=== PATIENT | female | born 2000 | race Caucasian/White ===

== ENCOUNTER 2021-03-02 19:21 | Emergency (ER) | payer MEDICAID, SELFPAY ==
[2021-03-02 20:42] VITALS: BP 115/76; PULSE 101; RESP 18; TEMP 36.8; O2SAT 99; BMI 18.8
--- NOTE | 2021-03-02 20:47 | HMH.EDUTC ---
[facility] Disposition Clinical Impression: Exposure to COVID-19 virus Disposition: Home, Self-Care Condition on Discharge: Good Instructions: Preventing the Spread of Coronavirus Discharge Instructions Additional Instructions: Drink plenty of fluids. Take tylenol for pain or fever. Return if you begin to have difficulty breathing. Follow up with your regular doctor. GO TO THE ER FOR ANY WORSENING SYMPTOMS Quarantine until you know the results of your covid-19 test. If it is positive, the health department should call you and give you further instructions about your length of Quarantine and other things. Notify your school or workplace of your results and follow their instructions regarding return to work/school. Referrals: Gael Almendarez [Primary Care Provider] - Time of Disposition: 20:59 Medical Decision Making - Medical Records Medical records reviewed: No: I reviewed the patient's medical records. - Tejinder Inquiry Pt receiving controlled substance: No Vital Signs: 03/02/21 20:42 03/02/21 21:07 Temperature 98.3 F 98.1 F Temperature Source Oral Pulse Rate 99 H Pulse Rate [Left] 101 H Respiratory Rate 18 16 Blood Pressure 109/66 L Blood Pressure [Right Arm] 115/76 Blood Pressure Mean [Right Arm] 89 02 Sat by Pulse Oximetry 99 Orders (Tests/Meds): ORDERS Category Date Time Status Covid-19 Nasal PCR ([facility]) Routine Lab 03/02/21 20:34 Received [facility] HPI - General Stated complaint: covid test Time Seen by Provider: 03/02/21 20:47 Mode of Arrival: Ambulatory Source of Information: Patient Limitations: No Limitations Description of Symptoms (Recalled from Triage Doc. by RN): pt was exposed to covid positive pt on 02/28 HEENT Symptoms (Recalled from RN notes): No Resp Symptoms (Recalled from RN notes): No Skin Symptoms (Recalled from RN notes): No MS Symptoms (Recalled from RN notes): No Functional Status (Recalled from RN notes): na - History of Present Illness Provider Complaint: She denies any symptoms but she was exposed to covid-19 on 02/28. - Related Data Allergies Allergy/AdvReac Type Severity Reaction Status Date / Time No Known Allergies Allergy Unverified 06/27/17 14:07 - Worker's Comp Is this a Worker's Comp case?: No [facility] History - Hepatitis A Screen Drug use history?: No High risk sexual behaviors?: No History of sexually transmitted infection?: No Currently employed?: No Childcare worker?: No Do you have indoor plumbing?: Yes Do you have electricity?: Yes Attestation statement:: This patient has been screened for Hepatitis A risk factors. I have reviewed the patient's past medical history: Yes ROS Obtained: Yes All systems reviewed & no additional complaints - Constitutional Constitutional: Reports system reviewed and no additional complaints, except as docu - Eyes Eyes: Reports system reviewed and no additional complaints, except as docu - ENT Ears, Nose, Mouth, and Throat: Reports system reviewed and no additional complaints, except as docu - Cardiovascular Cardiovascular: Reports system reviewed and no additional complaints, except as docu - Respiratory Respiratory: Reports system reviewed and no additional complaints, except as docu - Gastrointestinal Gastrointestingal: Reports: system reviewed and no additional complaints, except as docu Physical Exam - General General appearance: alert, in no apparent distress - Head Head exam: atraumatic, normocephalic, normal inspection - Eye Eye exam: Present: normal appearance, PERRL, EOMI - ENT ENT exam: Present: normal exam, normal oropharynx, mucous membranes moist, TM's normal bilaterally, normal external ear exam - Neck Neck exam: Present: normal inspection, full ROM, trachea midline. Absent: meningismus, lymphadenopathy - Chest Chest inspection: Present: normal inspection, symmetric chest wall rise. Absent: tenderness - Respiratory Respiratory exam: Present:
[2021-03-02 21:07] VITALS: BP 109/66; PULSE 99; RESP 16; TEMP 36.7
== END 2021-03-02 21:07 | disposition home or self-care (01) ==
PROVIDERS: Emergency Provider Nurse Practitioner Family; PCP Family Medicine
DX: Z20.822 Contact with and (suspected) exposure to COVID-19 (principal)
CPT/HCPCS: 99202; G0463; U0003

== ENCOUNTER 2023-03-29 18:18 | Outpatient (CLI) | payer MEDICAID, SELFPAY ==
[2023-03-29 18:27] VITALS: BMI 18.5
== END 2023-03-29 18:33 | disposition home or self-care (01) ==
LOC: UTC.OUT 18:19
PROVIDERS: PCP Family Medicine; Visit Provider Nurse Practitioner
DX: Z11.1 Encounter for screening for respiratory tuberculosis (principal)
CPT/HCPCS: 86580

== ENCOUNTER 2023-09-18 17:02 | Outpatient (CLI) | payer MEDICAID, SELFPAY | END 2023-09-18 23:59 | LOC: UTC.OUT 17:04 | PROVIDERS: PCP Family Medicine; Visit Provider Nurse Practitioner | DX: Z11.1 Encounter for screening for respiratory tuberculosis (principal) | CPT/HCPCS: 86580 ==